=== PATIENT | female | born 1965 ===

== ENCOUNTER 2022-05-24 05:38 | Day surgery (SDC) | payer OTHER ==
[~2022-05-24] VITALS: Ht 162.6 cm; Wt 89.4 kg
[2022-05-24] MEDS ORDERED: IBU600 MG PO (09:25)
[2022-05-24] MEDS ORDERED: DOXYCYCLINE HY100 MG PO (09:26)
== END 2022-05-24 13:50 | disposition home or self-care (01) ==
LOC: CIR.AMB 05:38
PROVIDERS: ATTEND Obstetrics & Gynecology Gynecology
DX: N84.0 Polyp of corpus uteri (principal); Z20.822 Contact with and (suspected) exposure to COVID-19; Z88.8 Allergy status to other drugs, medicaments and biological substances; Z86.16 Personal history of COVID-19; E06.3 Autoimmune thyroiditis; E66.9 Obesity, unspecified

== ENCOUNTER 2025-02-27 11:15 | Inpatient (IN) | payer OTHER ==
[~2025-02-27] VITALS: Ht 162.6 cm; Wt 90.7 kg
[~2025-02-27 11:15] MED LIST: DOXYCYCLINE HY100 MG PO; IBU600 MG PO
[2025-02-27 12:58] VITALS: BP 115/62
[2025-02-27 13:10] LABS: RH POSITIVE
[2025-03-04] MEDS ORDERED: POVIDONE-IODINE 118 ML BOTT TOP ONE (10:15)
[2025-03-04] MEDS ORDERED: CEFAZOLIN SODIUM 1,000 MG VIAL IV ONE (10:15)
[2025-03-04] MEDS ORDERED: MORPHINE SULFATE 4 MG/ML VIAL IV ONE (11:20)
[2025-03-04] MEDS ORDERED: ONDANSETRON HCL 2 MG/ML VIAL IV ONE (11:30)
[2025-03-04] MEDS ORDERED: MORPHINE SULFATE 4 MG/ML VIAL IV PRN (11:45)
[2025-03-04] MEDS ORDERED: ONDANSETRON HCL 2 MG/ML VIAL IV PRN (11:45)
[2025-03-04] MEDS ORDERED: RINGERS SOLUTION,LACTATED 1,000 ML IV SCH (11:45)
[2025-03-04] MEDS ORDERED: MORPHINE SULFATE 2 MG,MORPHINE SULFATE 4 MG IV PRN (11:45)
[2025-03-04] MEDS ORDERED: CEFAZOLIN SODIUM 1,000 MG VIAL IV SCH (12:00)
[2025-03-04] MEDS ORDERED: KETOROLAC TROMETHAMINE 30 MG VIAL IV ONE (14:10)
[2025-03-04] MEDS ORDERED: OxyCODONE HCL 5 MG TABLET (ROXICODONE) PO PRN (18:15)
[2025-03-04 20:41] VITALS: BP 138/77
[2025-03-04] MEDS ORDERED: IBUprofen 800 MG TABLET PO PRN (21:15)
[2025-03-04] MEDS ORDERED: GABAPENTIN 300 MG CAPSULE PO PRN (21:15)
[2025-03-05] MEDS ORDERED: PROMETHAZINE HCL 25 MG/ML AMPUL IV ONE (00:15)
[2025-03-05] MEDS ORDERED: KETOROLAC TROMETHAMINE 30 MG VIAL IV ONE (00:30)
[2025-03-05 00:53] VITALS: BP 124/68
[2025-03-05 08:00] VITALS: BP 114/64
[2025-03-05] MEDS ORDERED: ENOXAPARIN SODIUM 40 MG/0.4 ML SYRINGE SUBCUTANEO SCH (09:00)
[2025-03-05 09:32] LABS: HEMATOCRIT 33.9 % (34.1-44.9); HEMOGLOBIN 11.4 g/dL (11.2-15.7); RED BLOOD COUNT 3.96 M/uL (3.93-5.22)
[2025-03-05 09:33] LABS: BASO % 0.1 % (0.1-1.2); EOS % 0.1 % (0.7-7.0); LYMPH % 17.1 % (19.3-53.1); MEAN CORPUSCULAR HEMOGLOBIN 28.8 pg (25.6-32.2); NEUT % 74.4 % (34.0-71.1); PLATELET COUNT 315 K/uL (163-369); RED CELL DISTRIBUTION WIDTH 13.1 % (11.6-14.4)
[2025-03-05 09:34] LABS: EOS # 0.01 (0.04-0.54); NEUT # 6.52 (1.56-6.13)
[2025-03-05 15:52] VITALS: BP 129/72
[2025-03-06 00:30] VITALS: BP 120/69
[2025-03-06] MEDS ORDERED: GABAPENTIN300 MG PO (07:00)
[2025-03-06] MEDS ORDERED: TYLENOL ARTHRI650 MG PO (07:00)
[2025-03-06 09:00] VITALS: BP 128/78
== END 2025-03-06 09:13 | disposition home or self-care (01) | DRG 743 ==
LOC: O/R 03-04 05:43 → SURH 03-04 10:30 → OB/GYN 03-04 13:16
PROVIDERS: Obstetrics & Gynecology; ADMIT Obstetrics & Gynecology Gynecology; ATTEND Obstetrics & Gynecology Gynecology
PROC: 0UT70ZZ Resection of Bilateral Fallopian Tubes, Open Approach (ICD-10-PCS; 2025-03-04)
PROC: 0UT20ZZ Resection of Bilateral Ovaries, Open Approach (ICD-10-PCS; 2025-03-04)
PROC: 0USG0ZZ Reposition Vagina, Open Approach (ICD-10-PCS; 2025-03-04)
PROC: 0UT90ZZ Resection of Uterus, Open Approach (ICD-10-PCS; principal; 2025-03-04 10:30)
DX: D25.1 Intramural leiomyoma of uterus (principal); D25.2 Subserosal leiomyoma of uterus; D25.0 Submucous leiomyoma of uterus; N84.0 Polyp of corpus uteri; N80.03 Adenomyosis of the uterus